=== PATIENT | female | born 1960 | race Caucasian/White ===

== ENCOUNTER → 2023-05-28 13:30 | Outpatient (BNVA) | payer MEDICARE, SELFPAY | PROVIDERS: Visit Provider Surgery | DX: K22.70 Barrett's esophagus without dysplasia (principal); E11.9 Type 2 diabetes mellitus without complications; I50.9 Heart failure, unspecified | CPT/HCPCS: 99203 ==

== ENCOUNTER → 2023-06-25 02:35 | Outpatient (CLI) | payer MEDICARE, SELFPAY ==
--- NOTE | 2023-06-25 08:15 | DI.US_ITS ---
APPROVED REPORT EXAM: Comprehensive 2D, Doppler, and color-flow Echocardiogram Patient Location: Out-Patient [facility] Supervisor: Dominick Sainz RDCS (AE) Indications: hx of acute CHF, cardiomegaly Conclusion Normal left ventricular wall thickness and chamber size. Ejection fraction is 50%. There is mild gl obal hypokinesis Normal right ventricular size and systolic function Both atria are normal in size. The atrial septum is thin and hypermobile There is no structural or hemodynamically significant valvular disease Ascending aorta is borderline dilated 3.45 cm Wall motion Left Ventricle Left ventricle is normal size Left ventricular systolic function is borderline. There is normal left ventricular wall thickness. There is mild global hypokinesis of the left ventricle. There is no ventr icular septal defect visualized. LVEF is 50%. Right Ventricle The right ventricle is normal size. The right ventricular systolic function is normal. Unable to asse ss PA pressure. Atria The left atrium size is normal. The right atrium size is normal. The interatrial septum is intact wit h no evidence for an atrial septal defect. Aortic Valve The aortic valve is normal in structure. Aortic valve is trileaflet. There is no aortic valvular sten osis. No aortic regurgitation is present. Mitral Valve Mild mitral annular calcification. No evidence of mitral valve stenosis. Trace mitral regurgitation. Tricuspid Valve The tricuspid valve is normal in structure. There is no tricuspid valve stenosis. Trace tricuspid reg urgitation. Pulmonic Valve The pulmonary valve is normal in structure. There is no pulmonic valvular stenosis. There is no pulmo shelly valvular regurgitation. Great Vessels Aortic root is mildly dilated. The ascending aorta is borderline dilated. Aortic arch is normal in c aliber. IVC is normal in size and collapses >50% with inspiration. Pericardium There is no pericardial effusion. 2D Dimensions IVSD d PLAX 0.78 cm F: 0.6-1.0 Ao Root d 3.51 cm F: 2.7 - 3.3 LVPW d PLAX 0.79 cm F: 0.6 - 1.0 Ao Asc Diam d 3.45 cm F: 2.3 - 3.1 LVID d PLAX 5.43 cm F: 3.8 - 5.2 LVDs 4.02 cm F: 2.2 - 3.5 LV EF Teichholz 50.6 % FS 26.01 % LV EDV (Teich) 143.1 mL LV ESV (Teich) 70.7 mL Stroke Vol Index (Teich) 35.32 M-Mode TAPSE 2.42 cm (M/F) >1.7 Auto EF LV EDV A4C 102.0 mL LV EDV A2C 86.5 mL LV EDV BP 94.5 mL LV ESV A4C 50.1 mL LV ESV A2C 43.4 mL LV ESV BP 46.6 mL LVEF(%) A4C 50.9 % LVEF(%) A2C 49.8 % LVEF(%) BP 50.7 % LV SV A4C 51.9 ml LV SV A2C 43.1 ml LV SV BP 47.9 ml LV CO A4C 3.8 L/min LV CO A2C 3.1 L/min LV CO BP 3.5 L/min HR A4C 74.08 BPM HR A2C 71.72 BPM LV EDV Index (BP) LA Volume LA Length A4C 5.3 cm LA Length A2C LA Area A4C s 9.88 cm2 LA Area A2C s LA Vol A4C A-L 15.65 mL LA Vol A2C A-L LA Vol Biplane A-L LA Vol A4C MOD 15.0 mL LA Vol A2C MOD LA Vol BP MOD RA Volume RA Area A4C 9.1 cm2 RA ESV A4C (A-L) 19.3mL RA Vol/BSA A4C A-L RA Length A4C 3.6 cm RA ESV A4C (MOD) 19.2mL LV Diastology MV E' medial 0.062 (>0.07 m/s) MV E Vmax 0.63 (0.4-1.3 m/s) MV E/E' MED 10.28 (<14) MV A Vmax 0.85 (0.4-1.3 m/s) MV E' lateral 0.078 (>0.1 m/s) E/A Ratio 0.7 MV E/E' LAT 8.11 (<14) MV E' Average 0.070 m/s MV E/E'(average) 9.07 Aortic Valve AoV Vmax 1.15 m/s LVOT Vmax 0.98 m/s AoV Peak Grad 5.3 mmHg LVOT Peak Grad 3.8 mmHg AoV Area (Vmax) 3.24 cm2 LVOT VTI 0.208 m AoV VTI 0.266 m LVOT Mean Grad 2.1 mmHg AoV Mean Don. 0.83 m/s LVOT SV 79.50 mL AoV Mean Grad 3.1 mmHg LVOT Diam s 2.20 cm AoV Area (VTI) 2.99 cm2 Velocity Ratio 0.85 Mitral Valve MV DT 254 (160-240 msec) Pulmonary Valve PV Vmax 0.85 (0.5-1.5 m/s) RVOT Vmax 0.58 m/s PV Peak Grad 2.9 mmHg RVOT Peak Gr. 1.4 mmHg PV Mean Don 0.67 m/s RVOT VTI 0.139 m PV Mean Grad 1.9 mmHg RVOT Mean Gr. 0.7 mmHg
== END ==
PROVIDERS: Visit Provider Surgery
DX: I50.9 Heart failure, unspecified (principal)
CPT/HCPCS: 93306

== ENCOUNTER → 2023-12-11 10:56 | Outpatient (BNVA) | payer MEDICARE, SELFPAY | PROVIDERS: PCP Family Medicine; Referring Provider Family Medicine; Visit Provider Surgery | DX: K22.70 Barrett's esophagus without dysplasia (principal) | CPT/HCPCS: 99212 ==

== ENCOUNTER 2025-03-04 01:53 | Outpatient (CLI) | payer MEDICARE, SELFPAY ==
--- NOTE | 2025-03-04 12:30 | DI.US_ITS ---
APPROVED REPORT EXAM: Comprehensive 2D, Doppler, and color-flow Echocardiogram Patient Location: Out-Patient [facility] [place] Operator: Aleja Mcbride RDCS (AE) Indications: CHF Other Information Study Quality: Adequate. Technically limited study due to body habitus. Conclusion Normal left ventricular wall thickness and chamber size. Ejection fraction is 50 to 55%. Wall motion is normal Normal right ventricular size and function Both atria are normal in size. The atrial septum is thin and hypermobile There is no structural or hemodynamically significant valvular disease Mildly dilated aortic root Wall motion Left Ventricle The left ventricle is normal size. The overall left ventricular systolic function appears normal. There is normal left ventricular wall thickness. Regional wall motion is grossly normal. There is no ventricular septal defect visualized. LVEF is 52%. Right Ventricle The right ventricle is normal size. The right ventricular systolic function is normal. Atria The left atrium size is normal. The right atrium size is normal. Atrial septal aneurysm is present. Aortic Valve The aortic valve is normal in structure. Aortic valve is trileaflet. There is no aortic valvular stenosis. No aortic regurgitation is present. Mitral Valve The mitral valve is normal in structure. No evidence of mitral valve stenosis. Trace mitral regurgitation. Tricuspid Valve The tricuspid valve is normal in structure. There is no tricuspid valve stenosis. Trace tricuspid regurgitation. Unable to assess PA pressure. Pulmonic Valve The pulmonary valve is normal in structure. There is no pulmonic valvular stenosis. There is no pulmonic valvular regurgitation. Great Vessels Aortic root is mildly dilated. The ascending aorta is normal Aortic arch is normal in caliber. IVC is normal in size and collapses >50% with inspiration. Pericardium There is no pericardial effusion. 2D Dimensions IVSD d PLAX 0.70 cm F: 0.6-1.0 Ao Root d 3.46 cm F: 2.7 - 3.3 LVPW d PLAX 0.70 cm F: 0.6 - 1.0 Ao Asc Diam d 3.20 cm F: 2.3 - 3.1 LVID d PLAX 4.70 cm F: 3.8 - 5.2 LVDs 3.50 cm F: 2.2 - 3.5 LV EF Teichholz 50.9 % FS 25.86 % LV EDV (Teich) 100.8 mL LV ESV (Teich) 49.5 mL M-Mode TAPSE 1.74 cm (M/F) >1.7 Auto EF LV EDV A4C 97.8 mL LV EDV A2C 92.9 mL LV EDV BP 94.6 mL LV ESV A4C 46.5 mL LV ESV A2C 44.0 mL LV ESV BP 45.0 mL LVEF(%) A4C 52.5 % LVEF(%) A2C 52.6 % LVEF(%) BP 52.4 % LV SV A4C 51.4 ml LV SV A2C 48.9 ml LV SV BP 49.6 ml LV CO A4C 3.6 L/min LV CO A2C 3.3 L/min LV CO BP 3.5 L/min HR A4C 70.59 BPM HR A2C 67.67 BPM LV EDV Index (BP) LA Volume LA Length A4C 4.8 cm LA Length A2C 4.9 cm LA Area A4C s 15.93 cm2 LA Area A2C s 17.60 cm2 LA Vol A4C A-L 44.95 mL LA Vol A2C A-L 53.86 mL LA Vol Biplane A-L 49.7 mL LA Vol/BSA A4C A-L LA Vol/BSA A2C A-L LA Vol/BSA BP A-L 24.0 mL/m2 LA Vol A4C MOD 40.6 mL LA Vol A2C MOD 49.9 mL LA Vol BP MOD 45.4 mL RA Volume RA Area A4C 12.6 cm2 RA ESV A4C (A-L) 27.4mL RA Vol/BSA A4C A-L RA Length A4C 4.9 cm RA ESV A4C (MOD) 25.6mL LV Diastology MV E' lateral 0.077 (>0.1 m/s) MV E Vmax 0.58 (0.4-1.3 m/s) MV E/E' LAT 7.61 (<14) MV A Vmax 0.90 (0.4-1.3 m/s) E/A Ratio 0.6 Aortic Valve AoV Vmax 1.03 m/s LVOT Vmax 0.90 m/s AoV Peak Grad 4.3 mmHg LVOT Peak Grad 3.2 mmHg AoV Area (Vmax) 2.60 cm2 LVOT VTI 0.188 m AoV VTI 0.220 m LVOT Mean Grad 1.8 mmHg AoV Mean Don. 0.73 m/s LVOT SV 56.33 mL AoV Mean Grad 2.4 mmHg LVOT Diam s 1.95 cm AoV Area (VTI) 2.56 cm2 AV Regurg Peak Gr. 4.27 mmHg Velocity Ratio 0.87 Mitral Valve MV DT 244 (160-240 msec) MV Vmax TIPS 0.87 m/s MV Mean Grad 1.1 (<2mmHg) MV VTI 0.249 m Pulmonary Valve PV Vmax 0.84 (0.5-1.5 m/s) RVOT Vmax 0.80 m/s PV Peak Grad 2.8 mmHg RVOT Peak Gr. 2.5 mmHg PV Mean Don 0.63 m/s RVOT VTI 0.200 m PV Mean Grad 1.7 mmHg RVOT Mean Gr. 1.4 mmHg Tricuspid Valve TV S' 0.12 m/s
== END 2025-03-04 02:13 ==
PROVIDERS: PCP Family Medicine; Visit Provider Internal Medicine Cardiovascular Disease
DX: I50.20 Unspecified systolic (congestive) heart failure (principal)
CPT/HCPCS: 93306